=== PATIENT | male | born 1945 | race Caucasian/White ===

== ENCOUNTER → 2021-10-07 09:28 | Outpatient (CLI) | payer OTHER, SELFPAY ==
--- NOTE | 2021-10-07 09:33 | DI.MRI.S_ITS ---
PROCEDURE: MR PELVIS WO/W CON INDICATIONS: Elevated prostate specific antigen [PSA] TECHNIQUE: Coronal HASTE, axial T1 FSE with fat saturation, 3-plane nonbreath-hold T2 FSE. After the administration of contrast, dynamic axial, delayed axial and coronal VIBE or 2-D FLASH with fat saturation through the pelvis. Optional diffusion weighted imaging and ADC may be performed. COMPARISON: None. FINDINGS: Image quality: Diffusion weighted and dynamic contrast enhanced images are diagnostic. Prostate: Gland size is 4.9 x 3.8 x 4.8 cm; ellipsoid gland volume is 46 mL. Lesion #1: Size: 1.5 x 0.7 x 0.8 centimeters (axial ADC series 25, image 11 and coronal T2 series 5, image 18) Location: Right posterolateral peripheral zone, gland base T2 signal: Heterogeneous signal intensity DWI/ADC signal: Mild ADC hypointensity and DWI hyperintensity DCE: Positive DAMEON: Possible DAMEON posterolaterally near the expected region of the neurovascular bundle (axial T2 series 6, images 11 and 12) Seminal vesicle invasion: Absent PI-RADS: T2 signal - 3; ADC - 3; DCE - positive; Overall score: PI-RADS 4. Genitourinary system: Bladder wall thickness is normal. Distal ureters are non distended. Bowel and peritoneum: No pathologic free pelvic fluid. Inferior colon and small bowel loops are normal in caliber. Nodes and vessels: No pelvic or inguinal adenopathy by size criteria. Iliac vessels are normal in caliber. Bones: Marrow demonstrates normal overall signal, without lesions to suggest metastases. IMPRESSION: 1. A 1.5 centimeter lesion at the right peripheral zone, gland base, is consistent with PI-RADS category 4. There is possible extracapsular extension posterolaterally. 2. No suspicious lymph nodes visualized in the imaged pelvis. Dictated by: Josh Coronado M.D. on 10/09/2021 at 11:55 Approved by: Josh Coronado M.D. on 10/09/2021 at 12:25
== END ==
PROVIDERS: Family Provider Internal Medicine; PCP Internal Medicine; Referring Provider Urology; Visit Provider Urology
DX: N42.9 Disorder of prostate, unspecified (principal); R97.20 Elevated prostate specific antigen [PSA]
CPT/HCPCS: 72197; A9579

== ENCOUNTER → 2023-10-08 11:52 | Outpatient (CLI) | payer OTHER, SELFPAY ==
--- NOTE | 2023-10-08 11:53 | DI.US.S_ITS ---
PROCEDURE: US CAROTID DOPPLER BI INDICATIONS: STENOSIS OF LEFT CAROTID ARTERY TECHNIQUE: Color and pulse Doppler interrogation was performed of both carotid systems, with image documentation and velocity measurements. COMPARISON: Outside Facility, US, US CAROTID DOPPLER BI, 11/01/2019, 19:08. FINDINGS: Stenosis calculations are based on SRU (Society of Radi[employer] in Ultras[employer]) criteria. Right side: Brachial blood pressure: Unable to obtain Common carotid artery peak systolic velocity: 92 cm/sec. Internal carotid artery peak systolic velocity: 99 cm/sec. Internal carotid artery end diastolic velocity: 22 cm/sec. External carotid artery peak systolic velocity: 129 cm/sec. ICA/CCA peak systolic ratio: 1.1 . Smith scale imaging description: Atherosclerotic plaques Percent internal carotid artery stenosis: Less than 50% . Vertebral artery: Not well seen Left side: Brachial blood pressure: 112/63 mm Hg. Common carotid artery peak systolic velocity: 112 cm/sec. Internal carotid artery peak systolic velocity: 296 cm/sec. Internal carotid artery end diastolic velocity: 44 cm/sec. External carotid artery peak systolic velocity: 123 cm/sec. ICA/CCA peak systolic ratio: 2.6 . Smith scale imaging description: Significant atherosclerotic plaques Percent internal carotid artery stenosis: 70% to near occlusion . Vertebral artery: Flow direction is antegrade. IMPRESSION: There is 70% stenosis to near occlusion of the left ICA, velocity is increased compared to prior. Less than 50% stenosis of the right ICA. Dictated by: Fede Lopez M.D. on 10/18/2023 at 18:55 Approved by: Fede Lopez M.D. on 10/18/2023 at 18:58
== END ==
LOC: US 11:52
PROVIDERS: Family Provider Internal Medicine; PCP Family Medicine; Referring Provider Internal Medicine Cardiovascular Disease; Visit Provider Internal Medicine Cardiovascular Disease
DX: I65.23 Occlusion and stenosis of bilateral carotid arteries (principal)
CPT/HCPCS: 93880

== ENCOUNTER → 2023-11-11 11:58 | Outpatient (CLI) | payer OTHER, SELFPAY ==
--- NOTE | 2023-11-11 11:59 | DI.CT.S_ITS ---
PROCEDURE: CT ANGIO NECK INDICATIONS: STENOSIS LT CAROTID ARTERY TECHNIQUE: After the administration of intravenous contrast, 1.5 mm axial sections acquired from the aortic arch to the [place]. Maximum intensity projection (MIP) reformats were then performed. COMPARISON: [facility], , CAROTID DOPPLER BI, 10/08/2023, 12:43. FINDINGS: Image quality: Diagnostic. Carotid system: The great vessels demonstrate a conventional anatomy as they arise from the aortic arch. The origins of the common carotid arteries appear patent. The common carotid arteries demonstrate normal calibers and courses. The bifurcation regions appear normal bilaterally. The right internal carotid artery demonstrates approximately 50-60% stenosis at the origin with calcification. There is approximate 72% stenosis within the proximal left internal carotid artery approximately 1 cm from the origin. Atherosclerotic calcifications are present. Posterior circulation: The origins of the vertebral arteries appear patent. The more superior portions of the vertebral arteries demonstrate normal course and caliber. They join to form a normal appearing basilar artery. Soft tissues: Visualized neck soft tissues demonstrate no suspicious abnormalities. The thyroid gland demonstrates no significant abnormality. Bones: No suspicious bony lesions. Visualized cervical spine appears normally aligned. IMPRESSION: Approximately 72% stenosis of the proximal left internal carotid artery as well as 50-60% stenosis at the origin of the right internal carotid artery. Any quantitative stenosis measurements were performed using the NASCET criteria. Dictated by: Esperanza Alcala M.D. on 11/11/2023 at 18:12 Approved by: Esperanza Alcala M.D. on 11/11/2023 at 18:16
[2023-11-11 12:56] LABS: Estimated Glomerular Filt Rate 51 mL/min (>60)
== END ==
LOC: CT 11:58
PROVIDERS: Radiology Diagnostic Radiology; Family Provider Internal Medicine; PCP Family Medicine; Referring Provider Internal Medicine Cardiovascular Disease; Visit Provider Internal Medicine Cardiovascular Disease
DX: I65.23 Occlusion and stenosis of bilateral carotid arteries (principal)
CPT/HCPCS: 36415; 70498; 82565; Q9967

== ENCOUNTER → 2024-01-21 12:09 | Outpatient (CLI) | payer OTHER, SELFPAY ==
--- NOTE | 2024-01-21 12:10 | DI.CT.S_ITS ---
PROCEDURE: CT CHEST W CON INDICATIONS: rule out lung nodule TECHNIQUE: After the administration of intravenous contrast, 5 mm thick sections acquired from the pulmonary apices to the posterior costophrenic angles. 1 mm axial lung, 5 mm thick coronal and sagittal reformats and 7 mm axial MIP were acquired. For radiation dose reduction, the following was used: automated exposure control, adjustment of mA and/or kV according to patient size. COMPARISON: None. FINDINGS: Image quality: Diagnostic. Lower Neck: No enlarged lymph nodes. Thyroid: No thyroid nodules which require sonographic follow up, per consensus guidelines. Axillae: No enlarged lymph nodes. Chest Wall: Unremarkable. Bones: Unremarkable. Lungs and Pleura: No pneumothorax or pleural effusions. No consolidation or suspicious nodules. Heart: Heart size is normal. No pericardial effusion. Thoracic Vessels: The aorta and pulmonary arteries demonstrate normal size. Mediastinum and [place]: No enlarged lymph nodes. Esophagus: No wall thickening. No hiatal hernia. Upper Abdomen: Visualized upper abdomen solid organs and bowel loops appear normal. Gallstones are noted in the gallbladder. IMPRESSION: No suspicious lung nodules or masses. Incidental note of cholelithiasis. Dictated by: Jaime Burrows M.D. on 01/21/2024 at 13:33 Approved by: Jaime Burrows M.D. on 01/21/2024 at 13:38
[2024-01-21 12:53] LABS: Estimated Glomerular Filt Rate 53 mL/min (>60)
== END ==
PROVIDERS: Radiology Diagnostic Radiology; Family Provider Internal Medicine; PCP Family Medicine; Referring Provider Family Medicine; Visit Provider Family Medicine
DX: Z12.2 Encounter for screening for malignant neoplasm of respiratory organs (principal); Z87.891 Personal history of nicotine dependence; K80.20 Calculus of gallbladder without cholecystitis without obstruction
CPT/HCPCS: 71260; 82565; Q9967

== ENCOUNTER → 2024-06-18 12:38 | Outpatient (CLI) | payer OTHER, SELFPAY ==
--- NOTE | 2024-06-18 12:40 | DI.CT.S_ITS ---
PROCEDURE: CT ANGIO NECK INDICATIONS: STENOSIS TECHNIQUE: After the administration of intravenous contrast, 1.5 mm axial sections acquired from the aortic arch to the [place] of [place]. Maximum intensity projection (MIP) reformats were then performed. COMPARISON: [facility], CT, CT CHEST W CON, 01/21/2024, 12:55. [facility], CT, CT ANGIO NECK, 11/11/2023, 13:22. FINDINGS: Image quality: There is artifact associated with the metallic hardware. Artifact from the metallic hardware is reduced by metal reconstruction algorithm. There is streak artifact seen through the level of the shoulders. Carotid system: The great vessels demonstrate a conventional anatomy as they arise from the aortic arch. Atherosclerotic calcification is noted. There is a patent stent seen within the right brachiocephalic artery. The The origins of the common carotid arteries appear patent. The common carotid arteries demonstrate normal calibers and courses. The bifurcation regions demonstrate atherosclerotic irregularity and calcification. There is 70-80% narrowing seen involving the origin of the left internal carotid artery, with 60-70% narrowing seen involving the origin of the right internal carotid artery. The more distal internal carotid arteries demonstrate normal course and caliber. Posterior circulation: The origins of the vertebral arteries appear patent. The more superior portions of the vertebral arteries demonstrate normal course and caliber. They join to form a normal appearing basilar artery. Soft tissues: Visualized neck soft tissues demonstrate no suspicious abnormalities. The thyroid gland demonstrates no significant abnormality. Bones: No suspicious bony lesions. Visualized cervical spine appears normally aligned. Moderate to prominent cervical spine degenerative changes can be seen, including moderate anteriorly projected osteophyte at that C5-C6 level. IMPRESSION: Focal stenosis can be seen involving the origins of the internal carotid arteries, with 70-80% narrowing on the left and 60-70% narrowing on the right. Patent right brachiocephalic artery stent. Additional findings: Cervical spine degenerative change Any quantitative stenosis measurements were performed using the NASCET criteria. Dictated by: Cristobal Mathew M.D. on 06/18/2024 at 12:50 Approved by: Cristobal Mathew M.D. on 06/18/2024 at 12:54
== END ==
PROVIDERS: Family Provider Internal Medicine; PCP Family Medicine; Referring Provider Family Medicine; Visit Provider Internal Medicine Cardiovascular Disease
DX: I65.23 Occlusion and stenosis of bilateral carotid arteries (principal); M47.812 Spondylosis without myelopathy or radiculopathy, cervical region
CPT/HCPCS: 70498; Q9967